=== PATIENT | male | born 1970 | race Caucasian/White ===

== ENCOUNTER → 2016-06-26 | Outpatient (CLI) | payer OTHER ==
--- NOTE | 2016-06-26 17:26 | MR ---
MRI of the Right Wrist, Without Contrast History: Evaluate scapholunate ligament injury. Persistent widening on x-ray after trauma. Pain. Technique: Axial, sagittal, and coronal MR sequences of the wrist are obtained. Findings: There is evidence of a complete or near complete tear at the scapholunate interosseous liga ment. The dorsal fibers appear completely torn, best visualized on coronal image 19 of series 7. At t he central zone, there appears to be integrity at the fibers attached to the lunate, although the sca phoid attachment is disrupted. There appears to be a few bridging intact volar band fibers, however. Mild scapholunate diastasis. Lunotriquetral ligament is intact. TFCC appears intact. Mild edema and intrasubstance ganglia involve s the volar radioscaphocapitate ligament past the radial styloid. Extensor tendons are intact, with mild interstitial extensor carpi ulnaris tendinopathy at the ulnar styloid. Flexor tendons are intact. Carpal tunnel appears normal. Dorsal and volar bands of the radia l ulnar ligament appear intact. Impression: 1. Near complete tear of the scapholunate ligament, with a few intact volar band fibers present. 2. Minimal extensor carpi ulnaris tendinopathy. 3. Mild edema and intrasubstance ganglion formation within the volar extrinsic radioscaphocapitate li gament.
== END ==
LOC: FIMAGING 12:38
PROVIDERS: ATTEND Specialist
DX: S63.591A Other specified sprain of right wrist, initial encounter (principal)